=== PATIENT | female | born 1970 | race Caucasian/White ===

== ENCOUNTER → 2024-09-01 | Outpatient (CLI) | payer MEDICAID, SELFPAY ==
--- NOTE | 2024-09-01 10:00 | XR_ITS ---
Examination: Screening digital mammography, bilateral Computer aided detection 3-D breast Tomosynthesis, bilateral Date and time of exam: September 01, 2024 0951 hrs. Compared to mammograms dated to February 23, 2020 Indication: Screening Technique: Nonmagnified MLO, CC views of the breasts to been obtained, reconstructed from 3-D Tomosynthesis images. R2 computer aided detection program utilized for evaluation of suspicious masses and/or abnormal calcifications. 3-D Tomosynthesis images obtained. Findings: Scattered areas of fibroglandular density. Skin lesion upper left breast No interval suspicious masses Impression: BI-RADS category II: Benign Findings. Recommend 1 year follow-up mammogram. Given the patient's presentation of right breast pain one month, recommend bilateral breast sonography follow-up
== END | disposition home or self-care (01) ==
LOC: CDIM 09:44
PROVIDERS: Referring Provider Physician Assistant; Visit Provider Physician Assistant
DX: Z12.31 Encounter for screening mammogram for malignant neoplasm of breast (principal); R92.323 Mammographic fibroglandular density, bilateral breasts
CPT/HCPCS: 77063; 77067

== ENCOUNTER 2024-09-25 10:55 | Emergency (ER) | payer MEDICAID, SELFPAY ==
[2024-09-25] VITALS (12 sets, daily range): BP systolic 114–134; BP diastolic 65–88; PULSE 81–142; RESP 17–18; TEMP 36.7–39.6; O2SAT 91–98; BMI 31.7
--- NOTE | 2024-09-25 11:15 | XR_ITS ---
Examination: PA lateral chest 2 views TECHNIQUE: Upright PA lateral chest 2 views Date and time: September 25, 2024 1246 hours Comparison June 17, 2015 INDICATIONS: Coughing shortness of breath chest pain back pain beginning 3 days ago. FINDINGS: Mild opacity in the right middle lobe noted on the lateral view Normal heart size No pulmonary edema Moderate osteopenia IMPRESSION: Suspicious for early pneumonia in the right middle lobe
--- NOTE | 2024-09-25 11:16 | EKG_ITS ---
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
--- NOTE | 2024-09-25 11:16 | PD.EDRME ---
Rapid Medical Screening Exam RME Arrival date/time: 09/25/24 10:55 54-year-old female with no known medical history presents to the emergency room with a chief complaint of 8 out of 10 chest pain, cough, congestion, fevers x 2 days I have greeted and performed a focused initial assessment of this patient. A comprehensive ED assessment and evaluation of the patient, analysis of all test results, and completion of the medical decision making process will be conducted by additional ED providers. Chief Complaint: Flu Like Symptoms Time Seen by Provider: 09/25/24 11:11 Vital signs: Vital Signs Temperature 101.2 F H 09/25/24 11:09 Pulse Rate 118 H 09/25/24 11:09 Respiratory Rate 18 09/25/24 11:09 Blood Pressure 127/88 H 09/25/24 11:09 Pulse Oximetry (%) 97 09/25/24 11:09 Oxygen Delivery Method Room Air 09/25/24 11:09 Vital signs reviewed by provider: Yes
[2024-09-25 11:49] LABS: Lactate (Lactic Acid) 0.8 mMol/L (0.4-2.0)
[2024-09-25 11:50] LABS: Basophils % (Auto) 1 % (0-2.5); Eosinophils % (Auto) 0 % (0-10); Hematocrit 39.2 % (36.0-46.0); Hemoglobin 13.4 g/dL (12.0-16.0); Immature Granulocytes % (Auto) 0 % (0-0); Immature Granulocytes Auto 0.02 Thou/mm3 (0.00-0.00); Lymphocytes # (Auto) 0.9 Thou/mm3 (1.0-4.8); Lymphocytes % (Auto) 13 % (10-50); Mean Corpuscular HGB Conc 34.2 g/dl (31.0-37.0); Mean Corpuscular Volume 82 fL (80-100); Monocytes # (Auto) 1.1 Thou/mm3 (0.0-0.8); Monocytes % (Auto) 15 % (0-12); Neutrophils # (Auto) 5.2 Thou/mm3 (1.8-7.7); Neutrophils % (Auto) 71 % (37-80); Nucleated Red Blood Cell % 0 /100 WBC (0); Platelet Count 219 Thou/mm3 (140-440); RDW Standard Deviation 39.8 fL (36.4-46.3); Red Blood Count 4.79 Miln/mm3 (4.00-5.20); White Blood Count 7.3 Thou/mm3 (3.6-11.0)
[2024-09-25] MEDS: ACETAMINOPHEN 500 MG TABLET 1000 MG PO (11:50)
[2024-09-25] MEDS: DEXAMETHASONE SOD PHOS INJ 10 MG/ML VIAL PO (11:52)
[2024-09-25 12:11] LABS: B-Type Natriuretic Peptide 33 pg/mL (0-100)
[2024-09-25 12:21] LABS: Alanine Aminotransferase 11 U/L (10-49); Albumin, Serum 4.7 gm/dL (3.5-5.0); Alkaline Phosphatase 79 U/L (46-116); Anion Gap 10 (7-16); Aspartate Amino Transferase 12 U/L (0-34); BUN/Creatinine Ratio 11 Ratio (12-20); Bilirubin,Total 0.4 mg/dL (0.3-1.2); Blood Urea Nitrogen 9 mg/dL (9-23); Calcium 8.5 mg/dL (8.3-10.6); Calcium (Corrected) 8.5 mg/dL (8.5-10.1); Carbon Dioxide 24.9 mMol/L (20.0-31.0); Chloride 106 mMol/L (98-107); Creatinine (Component) 0.8 mg/dL (0.6-1.3); Estimated Creatinine Clearance 98.8 mL/min (>60); Globulin 2.4 gm/dL (2.3-3.5); Glucose 117 mg/dL (74-106); Osmolality,Calculated 280 (275-295); Potassium 3.9 mMol/L (3.4-5.1); Procalcitonin 0.06 ng/ml (0.0-0.49); Sodium 141 mMol/L (136-145); Total Protein 7.1 gm/dL (5.7-8.2); Troponin I < 0.020 ng/mL (0.0-0.045); eGFR > 60 See Note
--- NOTE | 2024-09-25 12:23 | EDNOTE_ITS ---
Upper Respiratory Inf. RME/HPI General Chief Complaint: Flu Like Symptoms Stated Complaint: short of breath, chest pain, back pain Time Seen by Provider: 09/25/24 11:11 Arrival date/time: 09/25/24 10:55 RME / HPI RME / HPI Narrative: 54-year-old female with no known medical history presents to the emergency room with a chief complaint of 8 out of 10 chest pain, cough, congestion, fevers x 2 days. Patient denies any vomiting patient is also sick with flulike symptoms for the last few days. Related Data Previous Rx's ?Medication ?Instructions ?Recorded albuterol sulfate 90 mcg/actuation 2 inh inhalation Q6 H PRN shortness 09/25/24 aerosol inhaler of breath or wheezing #8.5 g shawn doxycycline hyclate 100 mg capsule 100 mg PO BID #14 c aps 09/25/24 ibuprofen 800 mg tablet 800 mg PO Q8H PRN pain #30 t abs 09/25/24 nirmatrelvir 300 mg (150 mg See Rx Instructions PO .CO MPLEX 09/25/24 x2)-ritonavir 100 mg tablet,dose #30 tabs pack (Paxlovid) Allergies Allergy/AdvReac Type Severity Reaction Status Date / Time No Known Allergies Allergy Verified 09/25/24 10:59 Review of Systems Review of Systems Narrative Review of Systems: Review of system reviewed and within normal limits except mentioned in HPI ED Exam Narrative Physical exam: VITAL SIGNS: Reviewed. GENERAL APPEARANCE: Alert and interactive, follows commands, no acute distress, HEAD AND FACE: Non-traumatic. ENT: PERRL, pink conjunctivitis, eyelid no trauma, Mucous membrane moist. NECK: Supple, nontender, no nuchal rigidity. CHEST: No tenderness, no crepitus, no paradoxical movement, no retractions. LUNGS: Clear, well ventilated, symmetric, no rales, no wheezing, no ronchi, no stridor, good breath sounds bilaterally. HEART: Regular rate, regular rhythm, no murmur, no gallops. ABDOMEN: Soft, positive bowel sounds, nondistended, no guarding, nontender, no rebound, no masses, RECTAL: Deferred. GENITAL: Deferred. NEUROLOGICAL: Gross motor function intact sensory function intact, Appropriate for age. MUSCULOSKELETAL: low back nontender, full range of motion. EXTREMITIES: Nontender, full range of motion. SKIN: Color pink, dry, no rash, no lacerations, no abrasions, no contusions. LYMPHATICS: Deferred. Course Quality Measures none Orders Category Date Time Status Bedside COVID-19 Antigen Test NOW Care 09/25/24 11:15 Active Bedside Influenza A&B Antigen Test NOW Care 09/25/24 11:15 Completed EKG (ED ONLY) *Do not use* NOW Care 09/25/24 11:16 Completed EKG (ED ONLY) *Do not use* NOW Care 09/25/24 14:52 Completed EKG (ED Only) Stat Exams 09/25/24 11:16 Draft EKG (ED Only) Stat Exams 09/25/24 14:52 Draft XR chest 2V Stat Exams 09/25/24 11:15 Completed B-Type Natriuretic Peptide Stat Lab 09/25/24 11:32 Completed Blood Culture (Lab) Stat Lab 09/25/24 11:30 Received CBC Stat Lab 09/25/24 11:32 Completed CMP [Comprehensive Metabolic Panel] Stat Lab 09/25/24 11:32 Completed Lactate (Lactic Acid) Stat Lab 09/25/24 11:32 Completed Magnesium Stat Lab 09/25/24 11:32 Completed Procalcitonin Stat Lab 09/25/24 11:32 Completed Troponin I Stat Lab 09/25/24 11:32 Completed Urinalysis Stat Lab 09/25/24 14:17 Completed Urine Culture Stat Lab 09/25/24 14:17 Received Acetaminophen Tab [Tylenol ES Tab] Med 09/25/24 11:15 Discontinued 1,000 mg PO X1 ONE Acetaminophen Tab [Tylenol ES Tab] Med 09/25/24 15:07 Discontinued 500 mg PO X1 ONE Dexamethasone Inj [Decadron Inj] Med 09/25/24 11:15 Discontinued 10 mg PO X1 ONE Doxycycline Inj [Vibramycin Inj] 100 mg Med 09/25/24 12:22 Discontinued Sodium Chloride 0.9% (Pop) [NS 0.9% mini bag] 100 ml IV X1 Ibuprofen Tab [Motrin Tab] Med 09/25/24 12:23 Discontinued 800 mg PO X1 ONE Ringers Lactated 1000 ml [Lactated Ringers] 1,000 ml Med 09/25/24 12:23 Discontinued IV 999 mls/hr Ringers Lactated 1000 ml [Lactated Ringers] 1,000 ml Med 09/25/24 15:07 Discontinued IV 999 mls/hr Vital Signs Vital signs: Vital Signs Temperature 101.2 F H 09/25/24 11:09 Pulse Rate 118 H 09/25/24 11:09 Respiratory Rate 18 09/25/24 11:09 Blood Pressure 127/88 H 09/25/24 11:09 Pulse Oximetry (%) 97 09/25/24 11:09 Oxygen Delivery Method Room Air 09/25/24 11:09 Upper Respiratory Infection MDM Narrative MDM Narrative:: 54-year-old female with no known medical history presents to the emergency room with a chief complaint of 8 out of 10 chest pain, cough, congestion, fevers x 2 days. Patient denies any vomiting patient is also sick with flulike symptoms for the last few days. Patient tested positive for COVID-19. Chest ray showed early pneumonia. Was given IV fluids, Motrin Tylenol and doxycycline. Was also given dexamethasone IV Patient verbalized significant improvement of symptoms. Initially patient was noted to be tachycardic 140, after IV fluids went down to 84. Patient appears nontoxic and hemodynamically stable. Patient is satting 97% prior to discharge. On room air patient discharged home and instructed to follow-up with primary care provider in 24 to 48 hours. Instructed to return to the emergency department immediately if worsening of symptoms Patient data External records reviewed:: None Clinical information provided by:: patient Social determinants that could affect healthcare access:: none Patient has the following chronic illnesses:: None How is presenting disease/condition affected by chronic disease/condition?: no chronic disease Evaluation data The following diagnostics were reviewed and interpreted by me:: lab results, radiology exam(s) and EKG tracing(s) Lab and/or radiology exams considered but not ordered:: None Interpretation Summary: CBC no leukocytosis noted, CMP unremarkable, urinalysis no UTI chest x-ray pneumonia tested positive for COVID-19 EKG showed sinus tachycardia, ventricular 112 bpm, no ST segment elevation or depression noted. Medications / Prescriptions Medications or Prescriptions considered but not ordered:: Plan Medication administrations:: Medication Administration History Discontinued Medications Acetaminophen (Acetaminophen 500 Mg Tablet) 1,000 mg PO X1 ONE Stop: 09/25/24 11:16 Last Admin: 09/25/24 11:50 Dose: 1,000 mg Documented By: MM Acetaminophen (Acetaminophen 500 Mg Tablet) 500 mg PO X1 ONE Stop: 09/25/24 15:08 Last Admin: 09/25/24 15:17 Dose: 500 mg Documented By: MM Dexamethasone Sodium Phosphate (Dexamethasone Sod Phos Inj 10 Mg/Ml Vial) 10 mg PO X1 ONE Stop: 09/25/24 11:16 Last Admin: 09/25/24 11:52 Dose: 10 mg Documented By: MEEK Comments: given orally Lactated Ringer's (Lactated Ringers) 1,000 mls @ 999 mls/hr IV .Q1H1M ONE Stop: 09/25/24 13:23 Last Infusion: 09/25/24 13:40 Dose: Infused Documented By: Admin: 09/25/24 12:39 Dose: 999 mls/hr Documented By: MEEK Doxycycline Hyclate 100 mg/ (Sodium Chloride) 100 mls @ 100 mls/hr IV X1 ONE Stop: 09/25/24 13:21 Last Infusion: 09/25/24 13:34 Dose: Infused Documented By: Admin: 09/25/24 12:34 Dose: 100 mls/hr Documented By: MM Lactated Ringer's (Lactated Ringers) 1,000 mls @ 999 mls/hr IV .Q1H1M ONE Stop: 09/25/24 16:07 Last Admin: 09/25/24 15:11 Dose: 999 mls/hr Documented By: MEEK Ibuprofen (Ibuprofen Tab 400 Mg Tablet) 800 mg PO X1 ONE Stop: 09/25/24 12:24 Last Admin: 09/25/24 13:02 Dose: 800 mg Documented By: MEEK IV fluids Tylenol Motrin doxycycline dexamethasone Consultations Consultation(s) initiated? (list below): No Diagnosis Upper Respiratory Differential Diagnosis: upper respiratory infection and influenza Most likely diagnosis given after review of the tests above:: Pneumonia, COVID-19 Admission Indicated Admission indicated?: not indicated Explain why admission is indicated or not indicated:: Stable for discharge Admission Request Was there a request for admission?: No Disposition Plan Disposition Plan: Discharge Discharge Attestation Discharge Attestation: The patient and all family members were given an opportunity to ask questions and understood the discharge instructions. Discharge instructions specifically effects, indications for sooner follow up or return to the emergency department, and the expected course of current diagnosis. Patient condition: Stable Discharge Plan Plan Patient Disposition: HOME (Self Care) Discharge Disposition comment: stable Prescriptions/Referrals Prescriptions/Med Rec: [facility] (150 mg x 2)-100 mg tablets,dose pack See Rx Instructions .ROUTE .COMPLEX Qty: 30 0RF Rx Instructions: take TWO 150 mg tablets of nirmatrelvir with ONE 100 mg tablet of ritonavir twice daily for 5 days doxycycline hyclate 100 mg capsule 100 mg PO BID Qty: 14 0RF ibuprofen 800 mg tablet 800 mg PO Q8H PRN (Reason: pain) Qty: 30 0RF albuterol sulfate 90 mcg/actuation HFA aerosol inhaler 2 inh inhalation Q6H PRN (Reason: shortness of breath or wheezing) Qty: 8.5 0RF Referrals: Tavares Myers MD [Primary Care Provider] - In 1 week Problem List Clinical Impression: COVID-19, PNA (pneumonia) Patient/Caregiver Discharge Instructions Discharge Activity: activity as tolerated Education Materials: Proning COVID-19, Treating Pneumonia Additional Instructions: Thank you for the opportunity for serving you today. You are stable for d ischarged . You are advised to: Follow-up with your PCP in 1 to 2 days Return to ED for worsening of symptoms Increase oral fluids Take medication as prescribed Print Language: Zambian Stand Alone Forms: Aleyda Award Info., Patient Portal Info Letter PA/RAND Supervising Physician PA/RAND Supervising Physician: MD Jeannie
[2024-09-25] MEDS: DOXYCYCLINE INJ 100 MG in SODIUM CHLORIDE 0.9% (POP) 100 ML IV (12:34)
[2024-09-25] MEDS: RINGERS LACTATED 1000 ML 1,000 ML 999 ML IV ×2 (12:39→15:11)
[2024-09-25] MEDS: IBUPROFEN TAB 400 MG TABLET 800 MG PO (13:02)
[2024-09-25 14:23] LABS: Collection Type, Urine Clean Catch; RBC,Urine 0 /hpf (0-3); Squamous Epithelial Cell,Urine 0 /hpf (0-5)
[2024-09-25 14:32] LABS: Bilirubin,Urine Negative (Negative); Blood,Urine Negative (Negative); Clarity,Urine Clear (Clear/Hazy); Color,Urine Colorless (Lt Yel-Yel); Glucose, Urine Negative (Negative); Ketones,Urine 1+ (Negative); Leukocyte Esterase,Urine Negative (Negative); Nitrite,Urine Negative (Negative); Protein,Urine Negative (Neg - Trace); Specific Gravity,Urine 1.008 (1.001-1.035); Urobilinogen,Urine Negative mg/dL (0.0-1.0); WBC,Urine < 1 /hpf (0-5)
--- NOTE | 2024-09-25 14:52 | EKG_ITS ---
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
[2024-09-25] MEDS: ACETAMINOPHEN 500 MG TABLET PO (15:17)
== END 2024-09-25 17:26 | disposition home or self-care (01) ==
PROVIDERS: Nurse Practitioner Family; Emergency Provider Emergency Medicine; PCP Family Medicine
DX: U07.1 COVID-19 (principal); J12.82 Pneumonia due to coronavirus disease 2019
CPT/HCPCS: 36415; 71046; 80053; 81001; 81025; 83605; 83735; 83880; 84145; 84484; 85025; 87040; 87077; 87086; 87186; 87400; 87811; 93005; 96365; 99284; J1100; J3490; J7120; A9270

== ENCOUNTER → 2024-10-28 | Outpatient (CLI) | payer MEDICAID, SELFPAY ==
--- NOTE | 2024-10-28 11:30 | XR_ITS ---
Examination: Breast ultrasound complete, bilateral Date and time of exam: October 28, 2024 1153 hours INDICATIONS: Right breast sonogram August 29, 2023 2:00 nodule 4 mm 6:00 nodule 7 mm Technique: Real-time grayscale ultrasonographic imaging bilateral breasts, including all 4 quadrants as well as nipple retroareolar and axillary regions. Findings: Sonographic images right breast 9:00 oval mass circumscribed 4 x 4 millimeter IMPRESSION: BI-RADS Category 2: Benign findings
== END | disposition home or self-care (01) ==
LOC: CDIM 11:30
PROVIDERS: PCP Physician Assistant; Referring Provider Physician Assistant; Visit Provider Physician Assistant
DX: N64.4 Mastodynia (principal)
CPT/HCPCS: 76641